=== PATIENT | female | born 1990 | race Caucasian/White ===

== ENCOUNTER 2022-06-11 13:26 | Outpatient (REF) | payer BC, SELFPAY ==
--- NOTE | 2022-06-11 12:00 | PAPFT_PTH ---
PATIENT: Meg Perry [facility] U#:[id number] AGE/SX: 31/F ROOM: RE06/11/[address]: Patricia Acevedo : 1990 BED: DIS: 06/11/2022 SPEC #: [id number] RECD: 06/15/22 12:44 STATUS: FRANSISCA REQ #: [id number] KEVIN: 06/11/22 12:[address]: Patricia Acevedo DEPT: [facility] Cytology RECD BY: Kesha Ward Tissues: 1 - CX/ENDOCX FOR PAP SMEARS Procedures: PAP THIN PREP/[facility] Screening HPV DNA PROBE Comments: [id number] (CHLAMYDIA/GC)
[2022-06-11 18:22] LABS: HCT 40.8 % (36.0-46.0); HGB 13.7 g/dL (11.2-15.7); MCH 27.3 pg (27.0-33.0); MCHC 33.6 % (32.0-36.0); MCV 81 fL (80-95); MPV 10.6 fL (8.0-11.0); Platelet Count 316 10^3/uL (130-400); RBC 5.01 10^6/uL (3.93-5.22); RDW 12.5 % (11.7-14.6); WBC 7.26 10^3/uL (4.4-10.8)
[2022-06-11 18:36] LABS: ALT 35 U/L (14-59); AST 23 U/L (15-37); Albumin 3.7 g/dL (3.4-5.0); Alkaline Phosphatase 144 U/L (46-116); BUN 7 mg/dL (7-18); Bilirubin, Total 0.5 mg/dL (0.2-1.0); CREATININE 0.8 mg/dL (0.55-1.02); Calcium 8.9 mg/dL (8.5-10.1); Calculated LDL 69 mg/dL (<100); Chloride 103 mmol/L (98-107); Cholesterol 131 mg/dL (<200); Estimated GFR 99.71 (mL/min/1.73m2); Glucose 104 mg/dL (74-106); HDL Cholesterol 45 mg/dL (40-60); Potassium 4.1 mmol/L (3.5-5.1); Sodium 138 mmol/L (136-145); Total Protein 7.1 g/dL (6.4-8.2); Triglyceride 88 mg/dL (<150)
[2022-06-16 14:50] LABS: Chlamydia Result Negative (Negative); GC Result Negative (Negative)
== END 2022-06-11 13:27 | disposition home or self-care (01) ==
LOC: NCHCN 13:26
PROVIDERS: PCP Nurse Practitioner Family; Visit Provider Nurse Practitioner Family
DX: Z00.00 Encounter for general adult medical examination without abnormal findings (principal); E66.9 Obesity, unspecified
CPT/HCPCS: 80053; 80061; 85027; 87491; 87591; 88142; 87624